=== PATIENT | female | born 1965 | race African-American/Black ===

== ENCOUNTER 2017-08-01 05:06 | Emergency (ER) | payer BC ==
[~2017-08-01] VITALS: Ht 182.9 cm; Wt 83.9 kg
[2017-08-01] MEDS ORDERED: cloNIDine HCL 0.1 MG TAB ONE (05:12)
[2017-08-01] MEDS ORDERED: cloNIDine HCL 0.1 MG TAB PO ONE (05:30)
[2017-08-01 08:19] VITALS: BP 120/84
[2017-08-01 08:43] LABS: Basophils # (auto) 0.1 uL; Basophils % (auto) 0.9 % (0.0-2.0); Eosinophils # (auto) 0.1 uL; Eosinophils % (auto) 1.9 % (0.0-7.0); Hematocrit 39.8 % (36.0-46.0); Hemoglobin 13.7 g/dL (12.2-16.2); Lymphocytes # (auto) 0.9 uL; Lymphocytes % (auto) 11.5 % (10.0-50.0); Mean Corpuscular Hemoglobin 28.2 pg (28.0-32.0); Mean Corpuscular Hgb Conc. 34.4 g/dL (32.0-36.0); Mean Corpuscular Volume 82.1 fL (80.0-100.0); Mean Platelet Volume 6.5 fL (6.9-10.8); Monocytes # (auto) 0.5 uL; Monocytes % (auto) 6.2 % (0.0-12.0); Neutrophils # (auto) 6.4 uL; Neutrophils % (auto) 79.5 % (37.0-80.0); Nucleated Red Blood Cells % 0.1 %; Platelet Count (auto) 384 10^3/uL (140-450); Red Cell Distribution Width 15.5 % (11.8-14.3); White Blood Cell 8.1 10^3/uL (4.4-10.8)
[2017-08-01 08:54] LABS: Urine Bilirubin Negative (Negative); Urine Blood TRACE /uL (Negative); Urine Color Yellow (Yellow); Urine Glucose Normal (Normal); Urine Ketone Negative (Negative); Urine Nitrite Negative (Negative); Urine RBC 1 /hpf (0 - 4); Urine Squamous Epithelial Cell FEW /hpf (<5); Urine Urobilinogen Normal (Negative)
[2017-08-01 08:54] LABS: INR 0.98 (0.9-1.15); Partial Thromboplastin Time 28.5 sec (22.64-33.71); Prothrombin Time 10.7 sec (9.37-12.3)
[2017-08-01 09:02] LABS: Albumin 3.4 g/dL (3.4-5.0); BUN/Creatinine Ratio 27.4; Bilirubin, Total 0.4 mg/dL (0.2-1.0); Calcium 9.1 mg/dL (8.5-10.1); Total Protein 8.1 g/dL (6.4-8.2)
[2017-08-01 09:05] LABS: Potassium 4.3 mmol/L (3.5-5.1)
== END 2017-08-01 08:51 | disposition home or self-care (01) ==
LOC: ER 05:06
DX: R04.0 Epistaxis (principal); I10 Essential (primary) hypertension; R51 Headache
CPT/HCPCS: 36415; 70450; 80053; 81001; 85025; 85610; 85730; 93005

== ENCOUNTER 2021-03-13 07:37 | Day surgery (SDC) | payer MEDICARE ==
[~2021-03-13] VITALS: Ht 182.9 cm; Wt 88.5 kg
[~2021-03-13 07:37] MED LIST: ALBU108A5 IN; AZAT50TA2 PO; HYDR200T36 PO; LATA0.0019 EACHEYE
[2021-03-13] MEDS ORDERED: IODIXANOL 320MG/ML 100ML BTL IV ONE (09:02)
[2021-03-13] MEDS ORDERED: LIDOCAINE 2%HCL (LOCAL ANESTH.) INJ 20ML MDV ONE (09:02)
[2021-03-13] MEDS ORDERED: VERAPAMIL 2.5MG/ML INJ 2ML VIAL IV ONE (09:06)
[2021-03-13] MEDS ORDERED: ANGIOMAX 250 MG VIAL IV ONE (09:06)
[2021-03-13] MEDS ORDERED: SODIUM CHL 0.9% 0 ML ONE (09:07)
[2021-03-13] MEDS ORDERED: fentaNYL CITRATE 100 MCG/2 ML VL ONE (09:07)
[2021-03-13] MEDS ORDERED: MIDAZOLAM HCL 1MG/1ML-2 ML VIAL ONE (09:07)
[2021-03-13] MEDS ORDERED: HEPARIN SODIUM (PORCINE) 5000 UNITS/ML 1ML VIAL ONE (09:07)
== END 2021-03-13 12:15 | disposition home or self-care (01) ==
LOC: CATH 07:37
PROVIDERS: ATTEND Internal Medicine Cardiovascular Disease
DX: R94.39 Abnormal result of other cardiovascular function study (principal); I25.10 Atherosclerotic heart disease of native coronary artery without angina pectoris; Z20.822 Contact with and (suspected) exposure to COVID-19; Z79.899 Other long term (current) drug therapy; Z98.890 Other specified postprocedural states
CPT/HCPCS: 93458; C1887; C1894; J1644; J2250; J3010; Q9967; U0003; 99152

== ENCOUNTER 2022-05-23 09:52 | Emergency (ER) | payer MEDICARE, OTHER ==
[~2022-05-23] VITALS: Ht 182.9 cm; Wt 95.0 kg
[2022-05-23 10:47] VITALS: BP 136/86
== END 2022-05-23 11:33 | disposition home or self-care (01) ==
LOC: ER 09:52
DX: M79.661 Pain in right lower leg (principal); Z86.718 Personal history of other venous thrombosis and embolism; Z79.899 Other long term (current) drug therapy
CPT/HCPCS: 93971